=== PATIENT | male | born 1955 | race Caucasian/White ===

== ENCOUNTER 2021-10-08 09:46 | Observation (INO) ==
--- NOTE | 2021-09-16 14:53 | PAT Medication Instructions ---
Medication Instructions Date of Service September 16, 2021 Home Medications Medication Instructions Recorded tamsulosin 0.4 mg capsule (Flomax) 0.4 mg PO QPM #90 cap 06/19/21 sildenafil 100 mg tablet 100 mg PO DAILY PRN #30 tab 07/01/21 aspirin 81 mg tablet,delayed release 81 mg PO QAM atorvastatin 10 mg tablet 10 mg PO QPM lorazepam 1 mg tablet 0.5 mg PO HS PRN losartan 25 mg tablet 25 mg PO QAM metformin 1,000 mg tablet 1,000 mg PO QAM tamsulosin 0.4 mg capsule (Flomax) 0.4 mg PO QPM sildenafil 100 mg tablet 100 mg PO DAILY PRN acyclovir 400 mg tablet 400 mg PO QAM ascorbic acid (vitamin C) 500 mg tablet (Vitamin C) 500 mg PO BID empagliflozin 10 mg tablet (Jardiance) 10 mg PO QAM fluoxetine 20 mg capsule 20 mg PO QAM glucosamine sulf dipot chlr,msm,chond 550 mg-C 30 mg-mimi 1 mg capsule (Glucosamine Chondroitin) 1 cap PO QAM hydroxyzine HCl 25 mg tablet 25 - 75 mg PO HS PRN metformin 1,000 mg tablet 1,500 mg PO pantoprazole 40 mg tablet,delayed release 40 mg PO QAM zinc 10 mg tablet 10 mg PO QDL ASK your prescriber and surgeon aspirin 81 mg tablet,delayed release 81 mg PO QAM STOP taking 2 weeks before surgery glucosamine sulf dipot chlr,msm,chond 550 mg-C 30 mg-mimi 1 mg capsule (Glucosamine Chondroitin) 1 cap PO QAM STOP taking 24 hours before surgery sildenafil 100 mg tablet 100 mg PO DAILY PRN DO NOT take the morning of surgery losartan 25 mg tablet 25 mg PO QAM metformin 1,000 mg tablet 1,000 mg PO QAM ascorbic acid (vitamin C) 500 mg tablet (Vitamin C) 500 mg PO BID empagliflozin 10 mg tablet (Jardiance) 10 mg PO QAM metformin 1,000 mg tablet 1,500 mg PO zinc 10 mg tablet 10 mg PO QDL Take morning of surgery With a small sip of water, OTHERWISE NOTHING TO EAT OR DRINK AFTER MIDNIGHT: acyclovir 400 mg tablet 400 mg PO QAM fluoxetine 20 mg capsule 20 mg PO QAM pantoprazole 40 mg tablet,delayed release 40 mg PO QAM Take evening before surgery atorvastatin 10 mg tablet 10 mg PO QPM lorazepam 1 mg tablet 0.5 mg PO HS PRN(if needed) tamsulosin 0.4 mg capsule (Flomax) 0.4 mg PO QPM ascorbic acid (vitamin C) 500 mg tablet (Vitamin C) 500 mg PO BID hydroxyzine HCl 25 mg tablet 25 - 75 mg PO HS PRN(if needed) Other Notes If you have any questions please call us at [phone] or [phone] or [phone] or [phone]
--- NOTE | 2021-09-18 13:32 | Anesthesiology Consultation ---
Date of Service September 18, 2021 Assessment & Plan (1) Encounter for pre-operative examination: Chart Review Chart Review: Acceptable Risk for Surgery (pending preop Covid testing results ) and Patient seen in Pre Admission Testing - Check BSG AM DOS Per PAT appt on 09/18/21, patient denies any recent travel or large group activities. No known Covid positive exposures or Covid related symptoms. No known Covid infection in the past 90 days. Pt is fully vaccinated for Covid. Preop Covid testing scheduled 10/04/21 = will await results. Educated on importance of self quarantining, social distancing and wearing mask in public for the patient one week prior to surgery and after Covid testing done Teaching & Discussion Pre-Anesthesia Teaching/Discussion Notes: Instructed NPO after midnight before surgery,except medications with 15 cc of water. Medication instructions provided according to the [facility] guidelines. History Surgery Operation Date: 10/08/21 11:15 Proposed Procedures p Laparoscopic Robotic Assisted Radical Prostatectomy. Possible Open, Possible Lymph Node Dissection, Possible Suprapubic Tube Placement - Juwan Conley MD Height/Weight Height: 5 ft 11 in Weight: 83.7 kg Allergies Allergy/AdvReac Type Severity Reaction Status Date / Time No Known Allergies Allergy Verified 09/18/21 15:46 Medications Home Medications Medication Instructions Recorded Confirmed Last Taken aspirin 81 mg tablet,delayed 81 mg PO QAM 06/15/19 09/18/21 Unknown release atorvastatin 10 mg tablet 10 mg PO QPM 06/15/19 09/18/21 Unknown lorazepam 1 mg tablet 0.5 mg PO HS PRN 06/15/19 09/18/21 Unknown losartan 25 mg tablet 25 mg PO QAM 06/15/19 09/18/21 Unknown metformin 1,000 mg tablet 1,000 mg PO QAM 06/15/19 09/18/21 Unknown tamsulosin 0.4 mg capsule (Flomax) 0.4 mg PO QPM #90 cap 06/19/21 09/18/21 Unknown sildenafil 100 mg tablet 100 mg PO DAILY PRN #30 tab 07/01/21 09/18/21 Unknown acyclovir 400 mg tablet 400 mg PO QAM 09/16/21 09/18/21 Unknown ascorbic acid (vitamin C) 500 mg 500 mg PO BID 09/16/21 09/18/21 Unknown tablet (Vitamin C) empagliflozin 10 mg tablet 10 mg PO QAM 09/16/21 09/18/21 Unknown (Jardiance) fluoxetine 20 mg capsule 20 mg PO QAM 09/16/21 09/18/21 Unknown glucosamine sulf dipot 1 cap PO QAM 09/16/21 09/18/21 Unknown chlr,msm,chond 550 mg-C 30 mg-mimi 1 mg capsule (Glucosamine Chondroitin) hydroxyzine HCl 25 mg tablet 25 - 75 mg PO HS PRN 09/16/21 09/18/21 Unknown metformin 1,000 mg tablet 1,500 mg PO 1630 09/16/21 09/18/21 Unknown pantoprazole 40 mg tablet,delayed 40 mg PO QAM 09/16/21 09/18/21 Unknown release zinc 10 mg tablet 10 mg PO QDL 09/16/21 09/18/21 Unknown Past Medical History Medical History Allergic rhinitis Anxiety disorder Carcinoma of prostate Dx July 2021 Depression Diabetes NIDDM Glucose stable Eczema Esophageal reflux Well controlled and stable Essential hypertension Hyperlipidemia Exercise / Class Metabolic Activity II 4-5 Yardwork/Stairs/Walk up hill (one flight of stairs - no chest pain or SOB ) Past Family History Family History Father Diabetes Heart disease Hypertension FHx: colon cancer Past Surgical History Surgical History H/O prostate biopsy History of colonoscopy Past Anesthesia History No Hx of Anesthesia Complications and No Family Hx of Anesthesia Complications History of PONV No Hx of PONV and No Hx of Motion Sickness Social History Smoking Status: Never smoker Do You Dip or Chew Tobacco: No Hx Alcohol Use: Yes Alcohol type: beer alcohol intake frequency: a few times a month Hx Substance Use: No substance use type: does not use Review of Systems Hx of snoring- no witnessed apnea. No hx of sleep study Patient denies chest pain, shortness of breath, dyspnea on exertion, cough, wheezing, palpitations. No hx of seizures, stroke, AL. No hx of blood clots or blood transfusions Physical Exam Vital Signs VITALS BP 114/76 P 86 TEMP 98.7 SP02 95% RESP 16 Constitutional no acute distress ENMT Mouth: no TMJ clicking Thyromental Distance: > or= 3.5 Finger Breadths (3.5) Mallampati Class: II Crowns to teeth (unsure of which one) Neck neck extension not limited Respiratory normal respiratory effort; no respiratory distress Auscultation: lungs clear to auscultation bilaterally; no wheezes Cardiovascular Rate/Rhythm: regular rate and regular rhythm Heart Sounds: no murmur Vessels: no carotid bruit Musculoskeletal Spine: no pain with cervical ROM Extremities: extremities normal to inspection Psychiatric Orientation: alert Lab Results Anesthesia Preop Results Results Anesthesia Widget: WBC 6.58 K/uL (4.8-10.8) 09/18/21 Hgb 14.6 g/dL (14.0-18.0) 09/18/21 Hct 42.0 % (42-52) 09/18/21 Plt 226 K/uL (130-400) 09/18/21 Na 137 mmol/L (136-145) 09/18/21 K 4.0 mmol/L (3.5-5.1) 09/18/21 Cl 101 mmol/L (98-107) 09/18/21 CO2 27 mmol/L (21-32) 09/18/21 BUN 15 mg/dl (6-23) 09/18/21 Creat 0.79 mg/dl (0.6-1.4) 09/18/21 Glucose Level 188 mg/dl (70-99(Fasting)) H 09/18/21 Urine Color Yellow 09/18/21 Urine Appearance Clear (Clear) 09/18/21 Urine pH 5.0 (4.5-7.5) 09/18/21 Urine Specific [place] 1.040 (1.000-1.030) H 09/18/21 Urine Protein Negative (Negative) 09/18/21 Urine Glucose (UA) 3+ (Negative) H 09/18/21 Urine Ketones Negative (Negative) 09/18/21 Urine Blood Negative (Negative) 09/18/21 Urine Nitrite Negative (Negative) 09/18/21 Urine Bilirubin Negative (Negative) 09/18/21 Urine Urobilinogen Negative (Negative) 09/18/21 Urine Leukocyte Esterase Negative (Negative) 09/18/21 Blood Type A Positive 09/18/21 Antibody Screen NEGATIVE 09/18/21 Testing Laboratory Results 09/12/21= HGB A1C: 7.2 Electrocardiogram Date: 09/18/21 Findings: + NSR @ (81bpm ) Normal EKG per cardio. Chest X-Ray Date: 06/21/21 Rib X Ray with CXR FINDINGS: No fractures are seen. The chest wall and soft tissues are normal. The cardiomediastinal silhouette is normal. The lungs are clear. No evidence of pleural effusion or pneumothorax. IMPRESSION: No evidence of acute fracture or other acute abnormalities in the visualized portions of the chest.
[~2021-10-08 09:46] MED LIST: HEPARIN SOD 5,000 UNIT/0.5 ML VIAL SQ SCH; LR 15ML/HR IV SCH
[2021-10-08] MEDS ORDERED: ONDANSETRON INJ 2 MG/ML 2 ML VIAL IV PRN ×2 (10:42→18:37)
[2021-10-08] MEDS ORDERED: HYDROmorphone INJ 2 MG/ML SYR/VIAL IV PRN (10:42)
[2021-10-08] MEDS ORDERED: ePHEDrine sulfate 50 MG/ML AMP IV PRN (10:42)
[2021-10-08] MEDS ORDERED: fentaNYL citrate 100 MCG/2 ML VIAL IV PRN (10:42)
[2021-10-08] MEDS ORDERED: ATROPINE SULFATE 0.1 MG/ML 10ML SYR IV PRN (10:42)
--- NOTE | 2021-10-08 11:54 | History & Physical Bridge Note ---
Date of Service October 08, 2021 History & Physical Bridge Note I have examined the patient, reviewed the History & Physical and in the interval since the performance of the History & Physical I have noted the following changes of clinical significance: no changes noted
[2021-10-08] MEDS ORDERED: BUPIVACAINE 0.5 % 5 MG/1 ML MPF 30ML VIAL ONE (11:59)
[2021-10-08] MEDS ORDERED: ROCURONIUM BROMIDE 10 MG/ML 5 ML VIAL IV ONE ×6 (12:12→13:51)
[2021-10-08] MEDS ORDERED: LIDOCAINE 2% 2 ML VIAL/AMP(20MG/ML) INFIL ONE (12:12)
[2021-10-08] MEDS ORDERED: PROPOFOL IV EMULSION 10 MG/ML 20 ML VIAL IV ONE (12:12)
[2021-10-08] MEDS ORDERED: DEXAMETHASONE SOD INJ 4 MG/ML VIAL ONE (12:12)
[2021-10-08] MEDS ORDERED: fentaNYL citrate 100 MCG/2 ML VIAL ONE (12:12)
[2021-10-08] MEDS ORDERED: ONDANSETRON INJ 2 MG/ML 2 ML VIAL ONE (12:12)
[2021-10-08] MEDS ORDERED: MIDAZOLAM HCL 1 MG/ML 2ML VIAL ONE (12:13)
[2021-10-08] MEDS ORDERED: HYDROmorphone INJ 2 MG/ML SYR/VIAL ONE (12:54)
[2021-10-08] MEDS ORDERED: BELLADONNA/OPIUM SUPP 60 MG SUPP PR ONE ×2 (12:56→15:08)
[2021-10-08] MEDS ORDERED: ePHEDrine sulfate 50 MG/ML AMP ONE (13:14)
[2021-10-08] MEDS ORDERED: PHENYLEPHRINE HCL 10 MG/ML VIAL ONE (13:14)
[2021-10-08] MEDS ORDERED: GLYCOPYRROLATE 0.2 MG/ML VIAL ONE (13:52)
[2021-10-08] MEDS ORDERED: NEOSTIGMINE METHYLSULFATE 1 MG/ML 10ML VIAL ONE (13:52)
[2021-10-08] MEDS ORDERED: SURGICEL ABSORB HEMOSTAT 2IN X 14IN TOP ONE (15:09)
--- NOTE | 2021-10-08 16:18 | Operative Report ---
PG Post Operative Report Pre & Post Diagnosis Operation Date: 10/08/21 11:15 Pre-Op Diagnosis: Carcinoma of Prostate Post-Op Diagnosis: Carcinoma of Prostate I identified the patient and participated in the time-out.: Yes Procedure Operation Date: 10/08/21 11:15 Actual Procedures p Laparoscopic Robotic Assisted Radical Retropubic Prostatectomy, Bilateral Lym ph Node Dissection(Not Applicable) - Juwan Conley MD Surgeon Juwan Conley MD Chopper Gun Operator Melodie Welch Estimated Blood Loss 50 Findings Consistent with Post-Op Diagnosis Specimens 1. Periprostatic fat 2. Right pelvic lymph nodes 3 left pelvic lymph nodes 4 prostate and seminal vesicles Description of Procedure The patient was identified in the preoperative holding area, appropriate informed consents were reviewed and completed, and he was transported to the operating suite. Subcutaneous heparin was administered in the pre-operative holding area. Upon arrival in the operating suite, he received appropriate antibiotics and general anesthesia. He was positioned in dorsal lithotomy, a B&O suppository was inserted after digital rectal exam, and he was prepped and draped in standard fashion. A Yao catheter was inserted in the sterile field. A Veress needle was passed per umbilicus with uniform insufflation of the abdomen to 15mmHg. He was placed in steep Trendelenburg position. A periumbilical incision was then made to accommodate a 12mm Visiport with 10mm 0degree laparoscope. Inspection of the abdomen was carried out, and there was no evidence of traumatic entry or injury secondary to the Veress needle. After confirming a clear anterior abdominal wall, ports were subsequently placed in standard robotic prostatectomy fashion without incident. To begin the robotic portion of the case, the left lateral aspect of the sigmoid was mobilized off of the left pelvic side wall to allow the pouch of Bryan to be appropriately visualized. I then made an incision in the pouch of Bryan, overlying the seminal vesicles. Both SVs as well as the ampullae of the vasa were entirely dissected, with the vasa transected 3cm from the prostate. The medial umbilical ligaments were then controlled with bipolar electrocautery just inferior to the umbilicus. Following cauterization, they were divided utilizing monopolar cautery. A peritoneal incision was carried from this location to the medial aspect of the internal inguinal rings bilaterally with care to avoid opening through the ring. This incision was concluded when the vas deferens was reached. Dissection of the bladder and prostate off of the posterior aspect of the pubic arch was completed allowing full visualization of the prostate. The fat overlying the prostate was removed en bloc and passed off the table as a specimen labeled "periprostatic fat". The endopelvic fascia was cleared during this portion of the procedure, and subsequently opened - first on the right and then the left. The incision through the endopelvic fascia began near the prostate-bladder junction and was carried to the apex with extreme care to preserve all lateral levator musculature as well as the periurethral musculature and sphincter complex. I additionally preserved the puboprostatic ligaments. I then controlled the DVC with a 3-0 V-lock suture in overlapping/figure of 8 fashion. The lymph node dissection was then conducted. External iliac vessels were identified on the pelvic side wall. The packet of fat and lymphatic tissue that resides just under the iliac vein was elevated and off of the vein with a split and roll technique. The packet was dissected laterally to the circumflex vein and distally to the obturator nerve which was preserved. The p roximal aspect of the packet was carried towards the bifurcation of the iliac vessels. A combination of monopolar and bipolar cautery were used to assist with control. After completing the dissection on both sides, the packets were collected and passed off of the table as specimens labeled "pelvic lymph nodes". My attention then returned to the prostate, with identification of the bladder neck aided by gentle traction on the Yao catheter and lateral to medial pressure at the presumed level of the bladder neck with the robotic instruments. An anterior cystotomy was made, the Yao balloon deflated and the catheter guided through the incision to allow anterior retraction. I attempted to preserve maximal bladder neck musculature as I circumferentially dissected around the bladder neck. After incision through the posterior aspect of the mucosa, the dissection was carried through detrusor muscle until the bilateral ampullae of the vasa were identified. The previously dissected vasa and SVs were brought through the incision and used to elevated the prostate anteriorly. A posterior plane behind the prostate was then developed - splitting Denonvilliers's fascia. This dissection was carried as far as possible towards the apex as well as far as possible laterally. An incision in the lateral prostatic fascia was then made bilaterally to facilitate control of the vascular pedicles and preservation of the nerve bundles. Vasculature running along the posterior/lateral aspect of the prostate was preserved as well as the tissue containing the nerves. The pedicles were then controlled with a series of Weck clips. The apical attachments of the prostate were remaining at that stage. The DVC was divided after control with bipolar cautery over the prostate. Continuous i nspection from anterior and lateral views allowed me to closely follow the apical contour of the prostate and maximally preserve urethral length and tissue. The prostate was entirely freed at that point, and collected in an EndoCatch bag before being moved out of the field of vision. Hemostasis was confirmed and anastomosis of the bladder and urethra was completed utilizing a double armed V-Lock stitch. A new Yao catheter was inserted and the anastomosis tested with irrigation. There was no evidence of leak. A laura style stitch was placed bilaterally to functionally marsupialize the area of the lymph node dissection. The robot was undocked, the specimen extracted through expansion of the horacio- umbilical camera port. The fascia was closed with a series of 0-PDS figure of 8 stitches. The right assistant commissioner port was closed in two layers - with a figure of 8 0-Vicryl to reapproximate the fascia followed by 4-0 Monocryl to close the skin. Monocryl was used to close all other skin incisions. All wounds were dressed with Dermabond. The case was concluded and the patient taken to the PACU in stable condition. Melodie Welch assisted from incision to closure and all portions of the case between. I attest to the content of the Intraoperative Record and any orders documented therein. Any exceptions are noted below.
[2021-10-08 16:54] LABS: Basophils # (auto) 0.02 K/uL (0-0.2); Eosinophils # (auto) 0.01 K/uL (0-0.5); Eosinophils % (auto) 0.5 %; Hematocrit (blood only) 42.1 % (42-52); Hemoglobin 14.1 g/dL (14.0-18.0); Lymphocytes # (auto) 0.71 K/uL (1.2-3.4); Mean Corpuscular Hemoglobin 28.1 pg (25-34); Mean Corpuscular Volume 83.9 fL (80-100); Monocytes # (auto) 0.05 K/uL (0.11-0.59); Monocytes % (auto) 2.4 %; Neutrophils % (auto) 62.1 %; Platelet Count 154 K/uL (130-400); RDW Coefficient of Variation 14.1 % (11.5-14.5); RDW Standard Deviation 43.3 fL (36.4-46.3); Red Blood Count 5.02 M/uL (4.7-6.1); White Blood Count 2.09 K/uL (4.8-10.8)
[2021-10-08 16:57] LABS: Mean Corpuscular Hgb Conc 33.5 g/dL (32-36)
[2021-10-08 17:50] LABS: BUN Creatinine Ratio 16.5 (10-20); Calcium 8.3 mg/dl (8.5-10.1); Creatinine Clr Calc Pharmacy 89.8 ml/min; Est GFR (African American) 104.5 ml/min; Est GFR (Non-African American) 90.2 ml/min
--- NOTE | 2021-10-08 17:57 | Anesthesiology Progress Note ---
Date of Service October 08, 2021 Anesthesia Post Procedure Vital Signs Vital Signs: Temp Pulse Pulse Resp BP Pulse Ox 10/08/21 17:50 100 H 12 126/79 96 10/08/21 17:35 36.4 C L 102 H 17 142/74 H 96 10/08/21 17:20 101 H 16 141/80 H 96 10/08/21 17:10 101 H 19 148/80 H 95 10/08/21 17:00 36.6 C 96 H 22 142/77 H 96 10/08/21 16:50 104 H 16 149/81 H 94 10/08/21 16:40 97 H 16 148/74 H 96 10/08/21 16:30 98 H 18 130/76 96 10/08/21 16:23 36.6 C 100 H 20 155/75 H 96 10/08/21 10:11 36.6 C 66 16 138/76 99 Pain Intensity Penis: Pain Intensity: 4 Transfer of Care Handoff Completed per policy Notes Mental Status: alert / awake / arousable and participated in evaluation Patient Amnestic to Procedure: Yes Nausea / Vomiting: adequately controlled Pain: adequately controlled Airway Patency, RR, SpO2: stable & adequate BP & HR: stable & adequate Hydration State: stable & adequate Anesthetic Complications: no major complications apparent
[2021-10-08] MEDS ORDERED: MoRPHine SULFATE 2 MG/ML CARP IV PRN (18:37)
[2021-10-08] MEDS ORDERED: oxyCODONE HCL IR 5 MG TAB (IMMEDIATE RELEASE) PO PRN ×2 (18:37)
[2021-10-08] MEDS ORDERED: LORazepam 0.5 MG TAB PO PRN (18:37)
[2021-10-08] MEDS ORDERED: MoRPHine SULFATE 4 MG/ML 1 ML CARP\\VIAL IV PRN (18:37)
[2021-10-08] MEDS ORDERED: ACETAMINOPHEN 325 MG TAB PO PRN (18:37)
[2021-10-08] MEDS ORDERED: PHARMACY GLYCEMIC MGMT CONSULT PRN (18:37)
[2021-10-08] MEDS: LACTATED RINGER'S 1,000 ML IV SCH (18:46)
[2021-10-08] MEDS ORDERED: GLUCOSE 10 TABS/TUBE PO PRN (19:15)
[2021-10-08] MEDS ORDERED: CARBOHYDRATES FOR HYPOGLYCEMIA PO PRN (19:15)
[2021-10-08] MEDS ORDERED: GLUCAGON FOR INJ 1 MG VIAL IM PRN (19:15)
[2021-10-08] MEDS ORDERED: DEXTROSE 50% 50 ML SYRINGE IV PRN (19:15)
[2021-10-08] MEDS ORDERED: GLUCOSE 40% GEL 15 GM TUBE PO PRN (19:15)
[2021-10-08] MEDS: INSULIN ASPART PER UNIT SC SCH ×2 (20:21→21:36)
[2021-10-08] MEDS: DOCUSATE SODIUM 100 MG CAP PO SCH (20:23)
[2021-10-08] MEDS: HEPARIN SOD 5,000 UNIT/0.5 ML VIAL SQ SCH (20:24)
[2021-10-08] MEDS: ceFAZolin 2000MG 2,000 MG/15 ML SYR IV SCH (20:24)
[2021-10-08] MEDS ORDERED: LANTUS PER UNIT CHARGE SQ ONE (20:30)
[2021-10-08] MEDS ORDERED: ATORVASTATIN 10 MG TAB PO SCH (21:00)
[2021-10-09] MEDS: INSULIN ASPART PER UNIT SC SCH ×4 (00:10→12:54)
[2021-10-09] MEDS ORDERED: INSULIN ASPART PER UNIT SC SCH (02:00)
[2021-10-09] MEDS: ceFAZolin 2000MG 2,000 MG/15 ML SYR IV SCH (04:17)
[2021-10-09] MEDS: LACTATED RINGER'S 1,000 ML IV SCH (04:22)
[2021-10-09 07:13] LABS: Hematocrit (blood only) 40.7 % (42-52); Hemoglobin 13.6 g/dL (14.0-18.0); Mean Corpuscular Hemoglobin 27.9 pg (25-34); Mean Corpuscular Hgb Conc 33.4 g/dL (32-36); Mean Corpuscular Volume 83.6 fL (80-100); Mean Platelet Volume 8.1 fL (7.4-10.4); Platelet Count 176 K/uL (130-400); RDW Coefficient of Variation 14.1 % (11.5-14.5); RDW Standard Deviation 43.3 fL (36.4-46.3); Red Blood Count 4.87 M/uL (4.7-6.1); White Blood Count 2.91 K/uL (4.8-10.8)
[2021-10-09 07:43] LABS: Ovalocytes 1+
[2021-10-09 07:45] LABS: ANC (manual) 0.95 K/uL (1.4-6.5); Lymphocytes # (manual) 1.03 K/uL (1.2-3.4); Lymphocytes % (manual) 35.4 %; Monocytes # (manual) 0.36 K/uL (0.11-0.59); Monocytes % (manual) 12.4 %; Neutrophils # (manual) 0.95 K/uL (1.4-6.5); Neutrophils % (manual) 32.7 %; Reactive Lymphocytes # (manual) 0.57 K/uL; Reactive Lymphocytes % (manual) 19.5 %
[2021-10-09 07:48] LABS: BUN Creatinine Ratio 13.9 (10-20); Calcium 8.5 mg/dl (8.5-10.1); Est GFR (African American) 111.9 ml/min; Est GFR (Non-African American) 96.5 ml/min; Potassium 3.9 mmol/L (3.5-5.1)
[2021-10-09 08:07] LABS: Estimated Average Glucose 160 mg/dl; Hemoglobin A1C 7.2 % (4.5-5.6)
--- NOTE | 2021-10-09 08:08 | Urology Progress Note ---
Date of Service October 09, 2021 Assessment & Plan (1) Carcinoma of prostate: Plan: POD #1 s/p prostatectomy recovery on pace advance diet cath teaching plan for d/c home later today Admission and Anticipated Discharge Date Admission Date: October 08, 2021 Subjective some insomnia overnight no other major issues minimal pain good UoP labs stable (low WBC - existed prior to surgery) Physical Exam Physical Exam: incisions appropriate Results & Data ([facility]) Vital Signs (Past 12 Hours) Vital Signs Temp Pulse Resp BP Pulse Ox 10/09/21 07:50 36.5 C 63 16 105/65 95 10/09/21 03:56 36.9 C 68 20 119/69 96 10/08/21 22:52 36.7 C 85 20 121/72 96 10/08/21 20:40 36.6 C 94 H 20 123/71 98 PG Care Time/CCT Total # of Minutes Spent Total Time Spent with Patient: Total time spent is greater than 50% in coordination of care (as documented) at patient's floor/unit and/or counseling patient: Coding Level of Care Code 87548 Subseq Hosp Care Lvl 2 Diagnoses Carcinoma of prostate C61
[2021-10-09] MEDS: DOCUSATE SODIUM 100 MG CAP PO SCH (08:33)
[2021-10-09] MEDS: HEPARIN SOD 5,000 UNIT/0.5 ML VIAL SQ SCH (08:34)
[2021-10-09] MEDS ORDERED: FLUoxetine HCL 20 MG CAP PO SCH (09:00)
[2021-10-09] MEDS ORDERED: PANTOprazole 40 MG TAB PO SCH (09:00)
[2021-10-09] MEDS ORDERED: LOSARTAN POTASSIUM 25 MG TAB PO SCH (09:00)
[2021-10-09] MEDS ORDERED: ACYCLOVIR 400 MG TAB PO SCH (09:00)
--- NOTE | 2021-10-09 12:31 | Pharmacy Report ---
Pharmacy Glycemic Short Note 2 - Date of Service October 09, 2021 - Glycemic Short BSG Results (Last 24 hours): 10/08/21 10/08/21 10/08/21 16:26 16:44 21:08 Glucose 179 H POC Glucose 165 H 259 H 10/09/21 10/09/21 10/09/21 00:08 04:16 06:51 Glucose 110 H POC Glucose 163 H 95 10/09/21 10/09/21 08:10 12:12 Glucose POC Glucose 114 H 132 H OUTPATIENT ANTIDIABETIC REGIMEN: * Jardiance 10 mg PO daily * metformin 1000 mg Po qAM + 1500 mg PO qPM ASSESSMENT: * Mr De is a 65 y/o M on two oral agents for T2DM who presents for prostatectomy. Patient received dexamethasone 8 mg in OR. * BSGs yesterday were 119-165-259 and overnight were 163-95 mg/dL. Today's BSGs are 114-134 mg/dL. * Patient received 21 units of insulin yesterday (15 units of Lantus plus 6 units of bolus with HS BSG of 259 mg/dL). Suspect elevated HS BSG due to uncovered dinner. * Will continue with tight Novolog coverage for now due to steroid administration in OR. * Will have Lantus scale on for tonight as patient is on two oral agents for diabetes at home so has some basal requirements. PLAN FOR INPATIENT GLYCEMIC CONTROL: * Hold outpatient oral diabetes medications * Basal insulin * Lantus 0-10 units SQ HS * Bolus insulin * NovoLog per scale ACHS or Q6hrs while NPO * Goal Range: Low 110 mg/dL - High 140 mg/dL * Correction Factor: 20 mg/dL/unit * Nutritional / Prandial insulin per carb ratio of 1 unit per 7 grams CHO consumed
--- NOTE | 2021-10-09 12:51 | Discharge Summary ---
Date of Service October 09, 2021 Admission HPI Per Admitting Provider 65yo M with recently diagnosed prostate cancer who presents for robotic prostatectomy Admission Exam Per Admitting Provider Constitutional well developed and well nourished Neck neck nontender Respiratory normal respiratory effort; no respiratory distress and does not use accessory muscles Cardiovascular Rate/Rhythm: regular rate Vessels: radial pulses present Extremities: no edema Gastrointestinal (Abdomen) Inspection/Auscultation: abdomen normal to inspection Percussion/Palpation: abdomen soft; abdomen nontender and no guarding Musculoskeletal Head/Neck/Chest: normocephalic and head atraumatic Extremities: extremities normal to inspection Skin no rashes and no lesions Trauma: no evidence of skin trauma Neurologic awake; not obtunded Speech / Cognition: normal speech Motor/Sensory: no tremor Psychiatric Orientation: alert and oriented x 3 Genitourinary no CVA tenderness Lymphatic no lymphadenopathy Principal Diagnosis Prostate cancer Discharge Exam Constitutional well developed and well nourished; no acute distress and not ill appearing Respiratory normal respiratory effort and able to speak in complete sentences; no labored b reathing and no audible wheezes Gastrointestinal (Abdomen) Incisions appropriate Musculoskeletal Head/Neck/Chest: normocephalic Neurologic moves all extremities and awake Psychiatric Orientation: alert, oriented x 3 and cooperative Genitourinary Yao catheter draining clear yellow urine Discharge Data Allergies Allergy/AdvReac Type Severity Reaction Status Date / Time No Known Allergies Allergy Verified 09/18/21 15:46 Procedures Performed Operation Date: 10/08/21 11:15 Actual Procedures p Laparoscopic Robotic Assisted Radical Retropubic Prostatectomy, Bilateral Lymph Node Dissection(Not Applicable) - Juwan Conley MD Hospital Course (1) Carcinoma of prostate: 65-year-old male with prostate cancer who is status post Laparoscopic Robotic Assisted Radical Retropubic Prostatectomy, Bilateral Lymph Node Dissection on 10/08/2021. No acute issues postoperatively. Stable overnight with appropriate labs and good urine output. Pain was well controlled. Tolerated diet. Catheter draining without issue. Stable for discharge home on postop day 1. Total Time Total Time Spent Total Time Spent (In Minutes): 15 Discharge Plan Discharge Items Patient Disposition: Home - Self-Care Reason For Visit: Prostate cancer Discharge Diagnosis: Prostate cancer Activity: Per Instructions section Lifting: No more than 25 pounds Bathing Comment: OK to shower. No tub baths or soaks. Sexual Activity: Wait until after follow-up appointment Exercise/Sports: Wait until after follow-up appointment Driving/Machine Use: Do not drive if taking prescription pain medication. Non-emergency contact: Surgeon and Urologist Call non-emergency contact if: you have any medication questions, your symptoms worsen, your pain is not controlled, you have a fever, your wound has increased redness, your wound has increased drainage and your wound pain has increased Follow-up/Referrals: Juwan Conley MD [Physician] - 11/06/21 3:15 pm Kevin Mitchell MD [Primary Care Provider] - [facility],Nurse [FAKE FOR SCHEDULES] - 10/14/21 9:30 am Diet: Carb Consistent or DM2 Addtl Attending Provider Instructions: Please take all medications as prescribed and keep all follow-ups as scheduled. Please call our office at [phone] with any questions, concerns or need to reschedule appointments for any reason. We are happy to assist you We have sent an antibiotic to your pharmacy of choice. Please begin antibiotic as prescribed the day BEFORE your scheduled catheter removal at [facility]. Please continue antibiotic every 12 hours through the day AFTER your catheter removal. Activity: We recommend having someone with you for the first few days after surgery to help care for you. For the first 2 weeks after surgery, we would like you to get up and walk around your house. However, we recommend limit physical activity that would increase your heart rate. This will allow your body to rest and heal. Take naps if you feel tired. Don't lift anything heavier than 10 pounds, mow the law or ride a bicycle until your follow-up appointment. Please avoid long car rides. Home Care: Unless directed otherwise, drink 6 to 8 glasses of water a day (enough to keep your urine light colored). This will also help keep a healthy flow of urine. We recommend using a stool softener for the first two weeks to avoid constipation. Yao Catheter or Suprapubic Catheter care: Keep the catheter well secured with either a leg back or leg strap with large bag. Empty your bag when it's about half full. You may notice some blood in the bag. This is normal after surgery and while the catheter is in place. Use mild soap (such as Dove or Dial) and water to wash the catheter and the head of your penis daily, or more frequently if needed. Return to your normal diet, we encourage good protein intake to promote healing. You may shower as normal. Please avoid tub baths or soaking until catheter removed and incisions well healed. Wearing sweat pants while you have the catheter is recommended, they will be more comfortable. Follow-up Your follow up appointments for having your catheter removed, and follow up with your physician should already be scheduled. If you have any questions rega rding this, please contact our office. Your final pathology report will be discussed at your physician follow-up appointment. Call [facility] at [phone] right away if you have any of the following: Chest pain or trouble breathing (call 911 or go to the hospital) Fever of 101F or higher, uncontrolled vomiting Heavy bleeding, clots, or bright red blood from the catheter Catheter that falls out or stops draining Foul-smelling discharge from your catheter Redness, swelling, warmth, or increased pain at your incision site Drainage, pus, or bleeding from your incision Pending Studies at Discharge: Yes Studies:: pathology Stand-Alone Forms: My [facility] [employer], Smoking Cessation Medications and DC Order Prescriptions: New ciprofloxacin HCl 500 mg tablet 500 mg PO BID 3 Days Qty: 6 RF: 0 oxycodone-acetaminophen [Percocet] 5-325 mg tablet 1 tab PO Q8H PRN (Reason: pain) Qty: 7 RF: 0 docusate sodium [Colace] 100 mg capsule 100 mg PO BID Qty: 30 RF: 0 Continued sildenafil 100 mg tablet 100 mg PO DAILY PRN (Reason: sexual activity) Qty: 30 RF: 11 Metamucil 3.4 gram/5.4 gram powder 1 tbsp PO DAILY RF: 0 metformin 1,000 mg tablet 1,000 mg PO QAM RF: 0 atorvastatin 10 mg tablet 10 mg PO QPM RF: 0 lorazepam 1 mg tablet 0.5 mg PO HS PRN (Reason: Sleep) RF: 0 losartan 25 mg tablet 25 mg PO QAM RF: 0 aspirin 81 mg tablet,delayed release (DR/EC) 81 mg PO QAM RF: 0 acyclovir 400 mg Tablet 400 mg PO QAM RF: 0 ascorbic acid (vitamin C) [Vitamin C] 500 mg Tablet 500 mg PO BID RF: 0 pantoprazole 40 mg Tablet,Delayed Release (Dr/Ec) 40 mg PO QAM RF: 0 metformin 1,000 mg Tablet 1,500 mg PO 1630 RF: 0 hydroxyzine HCl 25 mg Tablet 25 - 75 mg PO HS PRN (Reason: Insomnia) RF: 0 fluoxetine 20 mg Capsule 20 mg PO QAM RF: 0 zinc 10 mg Tablet 10 mg PO QDL RF: 0 Jardiance 10 mg Tablet 10 mg PO QAM RF: 0 Glucosamine Chondroitin 550-30-1 mg Capsule 1 cap PO QAM RF: 0 Discontinued tamsulosin [Flomax] 0.4 mg capsule 0.4 mg PO QPM Qty: 90 RF: 3 Discharge Orders: Discharge Order (Routine); Ordered 10/09/21 Ordered By: Melodie Monteiro/Other Patient Handouts: Leg Bag Care Dc Admission Data Admit Date/Time: 10/08/21 16:29 Attending Provider: Juwan Conley Admit Provider: Juwan Conley Primary Care Provider: Kevin Mitchell Other Interventions: Discharge Summary Assessment (RN) Last Done: 10/09/21 14:17 Coding Level of Care Code D/C DAY MANAGEMENT <30 MINS Diagnoses Carcinoma of prostate C61
[2021-10-09] MEDS ORDERED: LANTUS PER UNIT CHARGE SQ SCH (21:00)
== END 2021-10-09 15:25 | disposition home or self-care (01) ==
LOC: ASU 09:46 → INTOOBSV 16:29 → 3N 16:29